=== PATIENT | female | born 1950 | race Hispanic/Latino ===

== ENCOUNTER → 2020-01-04 | Outpatient (CLI) | payer OTHER | END | disposition home or self-care (01) | LOC: RAH 09:24 | PROVIDERS: ATTEND Internal Medicine | DX: Z12.31 Encounter for screening mammogram for malignant neoplasm of breast (principal) | CPT/HCPCS: 77067 ==

== ENCOUNTER → 2021-04-23 | Outpatient (CLI) | payer OTHER | END | disposition home or self-care (01) | LOC: RAH 08:15 | PROVIDERS: ATTEND Family Medicine | DX: Z12.31 Encounter for screening mammogram for malignant neoplasm of breast (principal) | CPT/HCPCS: 77067 ==

== ENCOUNTER → 2022-12-27 | Outpatient (CLI) | payer OTHER | END | disposition home or self-care (01) | LOC: RAH 10:54 | PROVIDERS: ATTEND Family Medicine | DX: Z12.31 Encounter for screening mammogram for malignant neoplasm of breast (principal) | CPT/HCPCS: 77067 ==

== ENCOUNTER 2024-03-30 05:36 | Emergency (ER) | payer OTHER ==
[2024-03-30 05:44] VITALS: BP 175/90; PULSE 88; RESP 20; O2SAT 100
[2024-03-30 05:52] LABS: BASOPHILS # (AUTO) 0.05 K/uL (0.00-0.20); BASOPHILS % (AUTO) 0.5 % (0.0-5.0); EOSINOPHILS # (AUTO) 0.03 K/uL (0.00-0.70); EOSINOPHILS % (AUTO) 0.3 % (0.0-8.0); HEMATOCRIT 38.8 % (36-48); IMMATURE GRANULOCYTE ABSOLUTE 0.02 K/uL (0-1); LYMPHOCYTES # (AUTO) 1.1 K/uL (1.0-4.8); LYMPHOCYTES % (AUTO) 11.7 % (21.0-51.0); MEAN CORPUSCULAR HEMOGLOBIN 29.2 pg (27.0-33.0); MEAN CORPUSCULAR HGB CONC 34.5 g/dL (32.0-36.0); MEAN CORPUSCULAR VOLUME 84.5 fL (79-99); MONOCYTES # (AUTO) 0.8 K/uL (0.1-1.0); MONOCYTES % (AUTO) 8.2 % (3.0-13.0); NEUTROPHILS # (AUTO) 7.3 K/uL (1.8-7.7); NEUTROPHILS % (AUTO) 79.1 % (40.0-77.0); PLATELET COUNT (AUTO) 248 K/uL (130-400); RED BLOOD CELL COUNT(AUTO) 4.59 MIL/uL (4.00-5.50); RED CELL DISTRIBUTION WIDTH 13.1 % (11.0-15.5); WHITE BLOOD COUNT (AUTO) 9.2 K/uL (4.8-10.8)
[2024-03-30] MEDS: LACTATED RINGERS 1000ML 1,000 ML IV ONE (05:52)
[2024-03-30] MEDS: ONDANSETRON 4MG INJ IVP ONE (05:52)
[2024-03-30] MEDS: PANTOPRAZOLE 40 MG/VIAL IVP ONE (05:53)
[2024-03-30 06:10] LABS: ALBUMIN 3.6 g/dL (3.5-5.0); BILIRUBIN,TOTAL 0.6 mg/dL (0.2-1.0); CREATININE 0.7 mg/dL (0.5-1.0); MAGNESIUM 1.9 mg/dL (1.80-2.40); POTASSIUM 3.7 mmol/L (3.5-5.1); TOTAL PROTEIN, SERUM 7.4 g/dL (6.0-8.3)
[2024-03-30 06:13] LABS: APPEARANCE,URINE CLEAR (CLEAR); BILIRUBIN,URINE NEGATIVE (NEGATIVE); COLOR,URINE COLORLESS (YELLOW); GLUCOSE, URINE (UA) NEGATIVE (NEGATIVE); KETONES,URINE NEGATIVE (NEGATIVE); LEUKOCYTE ESTERASE ,URINE NEGATIVE Leu/uL (NEGATIVE); NITRATE,URINE NEGATIVE (NEGATIVE); OCCULT BLOOD,URINE NEGATIVE (NEGATIVE); PH,URINE 6.5 (5.0-8.0); PROTEIN,URINE NEGATIVE (NEGATIVE); UROBILINOGEN,URINE 0.2 mg/dL (0.2-1.0)
[2024-03-30 06:26] LABS: BACTERIA,URINE None Seen /HPF (None Seen); RBC,URINE 0-1 /HPF (0-1); SQUAMOUS EPITHELIAL CELL,UR None Seen /HPF (0-2); WBC,URINE 0-1 /HPF (0-1)
== END 2024-03-30 06:40 | disposition home or self-care (01) ==
LOC: EDH 05:36
DX: E86.0 Dehydration (principal); E78.00 Pure hypercholesterolemia, unspecified; I10 Essential (primary) hypertension
CPT/HCPCS: 99284; 96374; 96361; 96375; 83735; 84484; 80053; 83690; 85025; 81001; 36415; 93005; J7120; J2405; C9113

== ENCOUNTER → 2024-04-03 | Outpatient (CLI) | payer OTHER | END | disposition home or self-care (01) | LOC: RAH 11:06 | PROVIDERS: ATTEND Family Medicine | DX: Z12.31 Encounter for screening mammogram for malignant neoplasm of breast (principal); R92.313 Mammographic fatty tissue density, bilateral breasts | CPT/HCPCS: 77067 ==

== ENCOUNTER → 2024-10-01 | Outpatient (CLI) | payer OTHER | END | disposition home or self-care (01) | LOC: SHCH 09:52 | PROVIDERS: ATTEND Internal Medicine Cardiovascular Disease | DX: I10 Essential (primary) hypertension (principal); R07.9 Chest pain, unspecified | CPT/HCPCS: 93306 ==

== ENCOUNTER → 2025-05-23 | Outpatient (CLI) | payer OTHER, MEDICAID ==
--- NOTE | 2025-05-24 22:42 | HMCIMG ---
EXAM: MR Lumbar Spine Without Intravenous Contrast. CLINICAL HISTORY: Fracture vertebrae. TECHNIQUE: Magnetic resonance images of the lumbar spine in multiple planes. CONTRAST: None. COMPARISON: None. FINDINGS: For this examination, spinal levels were labeled assuming five non-rib bearing, lumbar-type vertebrae with the inferior labeled L5. No acute fracture. Chronic wedge compression fracture of L5 vertebral body with 70%-80% height loss. Normal lordotic curvature. Normal vertebral body and disc heights. Moderate lumbar spondylosis with multilevel marginal osteophytes, facet arthropathy, ligamentum flavum hypertrophy, and disc desiccation. Grade I degenerative anterolisthesis of L4 over L5. Normal marrow signal of the vertebrae. Conus medullaris terminates at the T12-L1 level. No abnormal epidural masses. The surrounding soft tissues are unremarkable. Individual spinal levels are described as follows: T12-L1: No disc bulge or herniation. No neural foraminal, lateral recess or spinal canal stenosis. L1-L2: No disc bulge or herniation. No neural foraminal, lateral recess or spinal canal stenosis. L2-L3: 2 mm diffuse disc bulge. No neural foraminal, lateral recess or spinal canal stenosis. L3-L4: 2 mm diffuse disc bulge. No neural foraminal, lateral recess or spinal canal stenosis. L4-L5: 3 mm diffuse disc bulge. Bilateral ligamentum flavum and facet hypertrophy. Moderate bilateral lateral recess and neural foraminal stenosis. Severe spinal canal stenosis. Bilateral traversing nerve root impingement. L5-S1: 4 mm diffuse disc bulge. Bilateral ligamentum flavum and facet hypertrophy. Moderate bilateral lateral recess and neural foraminal stenosis. Mild spinal canal stenosis. Multiple simple cortical and parapelvic cysts in the left kidney. IMPRESSION: Chronic wedge compression fracture of L5 vertebral body with 70%-80% height loss. Moderate lumbar spondylosis with multilevel marginal osteophytes, facet arthropathy, ligamentum flavum hypertrophy, and disc desiccation. Grade I degenerative anterolisthesis of L4 over L5. Diffuse disc bulges from L2-L3 through L5-S1. Moderate bilateral lateral recess and neural foraminal stenosis at L4-L5 and L5-S1. Severe spinal canal stenosis at L4-L5. Mild spinal canal stenosis at L5-S1. Multiple simple cortical and parapelvic cysts in the left kidney. /[place]
== END | disposition home or self-care (01) ==
LOC: RAH 13:14
PROVIDERS: ATTEND Family Medicine
DX: S32.050A Wedge compression fracture of fifth lumbar vertebra, initial encounter for closed fracture (principal); M47.817 Spondylosis without myelopathy or radiculopathy, lumbosacral region; M51.379 Other intervertebral disc degeneration, lumbosacral region without mention of lumbar back pain or lower extremity pain; M43.16 Spondylolisthesis, lumbar region; N28.1 Cyst of kidney, acquired; M48.07 Spinal stenosis, lumbosacral region; M43.8X6 Other specified deforming dorsopathies, lumbar region; M25.78 Osteophyte, vertebrae; X58.XXXA Exposure to other specified factors, initial encounter; Y93.89 Activity, other specified; Y92.89 Other specified places as the place of occurrence of the external cause; Y99.8 Other external cause status
CPT/HCPCS: 72148